=== PATIENT | male | born 2000 | race Caucasian/White ===

== ENCOUNTER 2023-12-02 17:48 | Emergency (ER) | payer OTHER ==
[~2023-12-02] VITALS: Ht 175.3 cm; Wt 75.6 kg
[2023-12-02 17:49] VITALS: BP 156/68; TEMP 97.4; O2SAT 100
[2023-12-02] MEDS: LIDOCAINE 1% MDV 20ML VIAL SC ONE (20:15)
== END 2023-12-02 21:28 | disposition home or self-care (01) ==
LOC: M ED 17:48
DX: S61.512A Laceration without foreign body of left wrist, initial encounter (principal); Y92.9 Unspecified place or not applicable; Y93.9 Activity, unspecified; Y99.9 Unspecified external cause status

== ENCOUNTER 2023-12-04 15:37 | Emergency (ER) | payer OTHER ==
[~2023-12-04] VITALS: Ht 175.3 cm; Wt 74.9 kg
[2023-12-04 18:34] VITALS: BP 135/69; TEMP 98.9; O2SAT 99
[2023-12-04] MEDS ORDERED: CEPH500C PO (19:27)
== END 2023-12-04 19:32 | disposition home or self-care (01) ==
LOC: M ED 15:37
DX: R22.32 Localized swelling, mass and lump, left upper limb (principal); F10.10 Alcohol abuse, uncomplicated; Z79.2 Long term (current) use of antibiotics